=== PATIENT | female | born 1955 | race Caucasian/White ===

== ENCOUNTER 2017-10-17 05:35 | Inpatient (IN) | payer OTHER ==
[~2017-10-17] VITALS: Ht 162.6 cm; Wt 70.9 kg
[2017-10-17 05:42] VITALS: Ht 162.6 cm; Wt 70.9 kg
[2017-10-17] MEDS ORDERED: SOD CHLORIDE 0.9% 500 ML IV ONE (06:00)
[2017-10-17] MEDS ORDERED: DILTIAZEM 25 MG INJ IV ONE ×2 (06:00→08:30)
[2017-10-17] MEDS ORDERED: DILTIAZEM 30 MG TAB PO ONE (06:30)
[2017-10-17 06:46] LABS: BASOPHILS % 0.7 % (0.0-2.0); EOSINOPHILS # 0.1 10^3/ul (0.0-0.5); EOSINOPHILS % 1.3 % (0.0-7.0); HEMATOCRIT 33.4 % (37.0-47.0); HEMOGLOBIN 10.6 g/dl (12.0-16.0); LYMPHOCYTES # 1.4 10^3/ul (0.8-2.9); LYMPHOCYTES % 25.4 % (15.0-51.0); MEAN CORPUSCULAR HEMOGLOBIN 30.4 pg (29.0-33.0); MEAN CORPUSCULAR HGB CONC 31.7 g/dl (32.0-37.0); MEAN CORPUSCULAR VOLUME 95.7 fl (82.0-101.0); MEAN PLATELET VOLUME 9.8 fl (7.4-10.4); MONOCYTE # 0.5 10^3/ul (0.3-0.9); MONOCYTES % 9.1 % (0.0-11.0); NEUTROPHIL # 3.5 10^3/ul (1.6-7.5); NEUTROPHILS % 63.1 % (39.0-77.0); PLATELET COUNT 253 10^3/UL (140-415); RED BLOOD COUNT 3.49 10^6/ul (4.20-5.40); RED CELL DISTRIBUTION WIDTH 12.3 % (11.5-14.5); WHITE BLOOD COUNT 5.5 10^3/ul (4.8-10.8)
--- NOTE | 2017-10-17 07:03 | RADRPT ---
PROCEDURE: XR Chest. CLINICAL INDICATION: Chest Pain. TECHNIQUE: AP semi upright chest COMPARISON: None. FINDINGS: The patient has a poor inspiration. The heart is within normal limits in size. There is no evidence of pulmonary vascular congestion acute lung consolidation pleural effusions and pneumothorax. IMPRESSION: No evidence of acute cardiopulmonary disease. RPTAT:AAJJ Physician Allan Date Time Electronically viewed and signed by Lui lAvarado Physician on 10/17/2017 07:02 BM/
[2017-10-17] MEDS ORDERED: SOD CHLORIDE 0.9% 1,000 ML IV STA ×2 (07:06→08:16)
[2017-10-17 07:24] LABS: ALANINE AMINOTRANSFERASE 26 IU/L (13-69); ALBUMIN 3.5 g/dl (3.3-4.9); ALBUMIN/GLOBULIN RATIO 1.29; ALKALINE PHOSPHATASE 46 IU/L (42-121); ANION GAP 14 (8-16); ASPARTATE AMINO TRANSFERASE 18 IU/L (15-46); BLOOD UREA NITROGEN 18 mg/dl (7-20); CALCIUM 8.4 mg/dl (8.4-10.2); CARBON DIOXIDE 23 mmol/L (21-31); CHLORIDE 114 mmol/L (97-110); CREATININE 0.57 mg/dl (0.44-1.00); GLUCOSE 102 mg/dl (70-220); POTASSIUM 4.1 mmol/L (3.5-5.1); SODIUM 147 mmol/L (135-144); TOTAL PROTEIN 6.2 g/dl (6.1-8.1)
[2017-10-17 07:35] LABS: B-TYPE NATRIURETIC PEPTIDE 212 PG/ML (0-125)
[2017-10-17 07:37] LABS: TROPONIN-I < 0.012 ng/ml (0.00-0.12)
[2017-10-17] MEDS ORDERED: ONDANSETRON 4 MG INJ IV PRN (08:00)
[2017-10-17] MEDS ORDERED: ACETAMINOPHEN 325 MG TAB PO PRN ×2 (08:00→19:00)
--- NOTE | 2017-10-17 08:16 | ERD ---
ER Documentation Chief Complaint Chief Complaint episode of tachycardia at home 160s at 1am today w/ SOB HPI Patient is a 61-year-old female who presents with palpitations. They started this morning at 1 AM. She is not on any medications like Coumadin and has not heard of atrial fibrillation in the past. She has no history of A. fib per her daughter. She has had a burning type back pain since this morning as well. She has had no treatment as of yet. She does not currently have a primary doctor. Upon review of old medical records this is the patient's first visit to the emergency department. ROS All systems reviewed and are negative except as per history of present illness. Medications Home Meds No Active Prescriptions or Reported Meds Allergies Allergies: Coded Allergies: No Known Allergy (Unverified , 10/17/17) PMhx/Soc Medical and Surgical Hx: pt denies Medical Hx, pt denies Surgical Hx Hx Alcohol Use: No Hx Substance Use: No Hx Tobacco Use: No Smoking Status: Never smoker FmHx Family History: No diabetes Physical Exam Vitals Vital Signs Date Time Temp Pulse Resp B/P Pulse Ox O2 Delivery O2 Flow Rate FiO2 10/17/17 06:10 154 23 125/112 99 Room Air 10/17/17 05:42 97.6 72 20 101/67 100 Physical Exam Const: No acute distress Head: Atraumatic Eyes: Normal Conjunctiva ENT: Normal External Ears, Nose and Mouth. Neck: Full range of motion..~ No meningismus. Resp: Clear to auscultation bilaterally Cardio: Tachycardic rate without murmur Abd: Soft, non tender, non distended. Normal bowel sounds Skin: No petechiae or rashes Back: No midline or flank tenderness Ext: No cyanosis, or edema Neur: Awake and alert Psych: Normal Mood and Affect Result Diagram: 10/17/1731 10/17/1731 Results 24 hrs Laboratory Tests Test 10/17/17 06:31 White Blood Count 5.510^3/ul Red Blood Count 3.4910^6/ul Hemoglobin 10.6g/dl Hematocrit 33.4% Mean Corpuscular Volume 95.7fl Mean Corpuscular Hemoglobin 30.4pg Mean Corpuscular Hemoglobin Concent 31.7g/dl Red Cell Distribution Width 12.3% Platelet Count 38110^3/UL Mean Platelet Volume 9.8fl Neutrophils % 63.1% Lymphocytes % 25.4% Monocytes % 9.1% Eosinophils % 1.3% Basophils % 0.7% Nucleated Red Blood Cells % 0.0/100WBC Neutrophils # 3.510^3/ul Lymphocytes # 1.410^3/ul Monocytes # 0.510^3/ul Eosinophils # 0.110^3/ul Basophils # 0.010^3/ul Nucleated Red Blood Cells # 0.010^3/ul Sodium Level 147mmol/L Potassium Level 4.1mmol/L Chloride Level 114mmol/L Carbon Dioxide Level 23mmol/L Anion Gap 14 Blood Urea Nitrogen 18mg/dl Creatinine 0.57mg/dl Glucose Level 102mg/dl Calcium Level 8.4mg/dl Total Bilirubin 0.0mg/dl Direct Bilirubin 0.00mg/dl Indirect Bilirubin 0.0mg/dl Aspartate Amino Transf (AST/SGOT) 18IU/L Alanine Aminotransferase (ALT/SGPT) 26IU/L Alkaline Phosphatase 46IU/L Troponin I < 0.012ng/ml B-Type Natriuretic Peptide 212PG/ML Total Protein 6.2g/dl Albumin 3.5g/dl Globulin 2.70g/dl Albumin/Globulin Ratio 1.29 Current Medications Medications (Trade) Dose Ordered Sig/Bahman Route PRN Reason Start Time Stop Time Status Last Admin Dose Admin Sodium Chloride (NS) 500 ml @ 500 mls/hr Q1H ONCE IV 10/17/17 06:00 10/17/17 06:59 DC 10/17/17 06:07 Diltiazem HCl (Cardizem Iv) 10 mg ONCE ONCE IV 10/17/17 06:00 10/17/17 06:01 DC 10/17/17 06:07 Diltiazem HCl 30 mg 30 mg ONCE ONCE PO 10/17/17 06:30 10/17/17 06:31 DC Sodium Chloride (NS) 1,000 ml @ 1,000 mls/hr Q1H STAT IV 10/17/17 07:06 10/17/17 08:05 DC Ondansetron HCl (Zofran Inj) 4 mg ER BRIDGE PRN IV NAUSEA AND/OR VOMITING 10/17/17 08:00 10/18/17 07:59 Acetaminophen (Tylenol Tab) 650 mg ER BRIDGE PRN PO MILD PAIN/FEVER 10/17/17 08:00 10/18/17 07:59 Procedures/MDM EKG read by me: Rate/Rhythm: Atrial fibrillation with a rapid ventricular response Intervals: Normal Impression: A. fib with RVR Chest x-ray negative per radiology. Patient is a 61-year-old female who presents with new onset atrial fibrillation. She also has A. fib with RVR. The patient will be admitted to the care of Dr. Groves as the patient has [facility] insurance. The patient's laboratory studies are basically normal. She has mild anemia that does not require transfusion. The patient will be admitted to a telemetry bed. She was given diltiazem both IV and by mouth. She was given normal saline for fluid resuscitation as well. Critical Care: Time: 35 minutes excluding all billable procedures. Treatments/Evaluations: Close monitoring and treatment of unstable vital signs, cardiorespiratory, and neurologic status, while maintaining tight balance of fluid, respiratory, and cardiac interventions. Departure Diagnosis: Primary Impression: Atrial fibrillation with rapid ventricular response Additional Impression: Tachycardia Condition: BENIGNO Zuñiga MD Oct 17, 2017 08:16
[2017-10-17 09:15] LABS: INR 0.94; PROTIME 12.6 Sec (12.2-14.2)
[2017-10-17 09:16] LABS: PARTIAL THROMBOPLASTIN TIME 25.7 Sec (25.0-35.0)
[2017-10-17] MEDS ORDERED: DILTIAZEM-D5W 125MG/125ML DRIP 125 ML IV STA (09:49)
[2017-10-17] MEDS ORDERED: AMIODARONE 900 MG in DEXTROSE 5% 482 ML IV SCH (12:00)
--- NOTE | 2017-10-17 12:36 | CONS ---
DATE OF ADMISSION: 10/17/2017 DATE OF CONSULTATION: 10/17/2017 CARDIOLOGY CONSULTATION REFERRING PHYSICIAN: Dr. Fatima. REASON FOR EVALUATION: Atrial fibrillation with rapid ventricular response. HISTORY OF PRESENT ILLNESS: Ms. Reynolds is a 61-year-old woman from [facility] who has a history of heart disease diagnosed in [facility], although she is not sure what it is, who comes to the hospital [facility] for evaluation of ____, palpitations. The patient says she has never had episodes like this befo re though she had palpitations prior. She is not anticoagulated. The patient has atrial fibrillati on with rapid ventricular response. She is on diltiazem drip which is being treated. Since onset o f symptoms less than 24 hours, I think it might be reasonable to try to convert the patient back to sinus rhythm. We will initiate her on anticoagulation therapy and initiate amiodarone drip now and hope for conversion. ALLERGIES: NO KNOWN DRUG ALLERGIES. SOCIAL HISTORY: The patient does not smoke, does not drink. FAMILY HISTORY: Negative for sudden cardiac , premature coronary artery disease. PAST MEDICAL HISTORY: History of cardiac congestion, poorly described, diagnosed in [facility]. Famil y history of diabetes. MEDICATION: 1. Diltiazem drip. 2. Ondansetron. 3. ____. REVIEW OF SYSTEMS: CONSTITUTIONAL: No fevers, no chills. HEENT: No changes in vision or hearing. CARDIAC: No chest pain reported now, tachycardia. RESPIRATORY: Shortness of breath, acute on chronic with tachycardia. GASTROINTESTINAL: No nausea, vomiting, diarrhea, constipation. GENITOURINARY: No dysuria, hematuria. NEUROLOGIC: No focal neurologic deficits. HEMATOLOGIC: No easy bruising. PSYCHIATRIC: No history of psychiatric disease. PHYSICAL EXAMINATION: VITAL SIGNS: Temperature is 97.8, heart rate in 140s now, blood pressure is ____. GENERAL: She is a thin woman in no acute distress, alert and oriented x3. HEAD: Normocephalic, atraumatic. Eyes anicteric. NECK: Supple. JVD 6 to 7 cm. There is no lymphadenopathy or thyromegaly. HEART: Regular with soft holosystolic murmur at the apex. PMI is nondisplaced. I do not hear an S 3. LUNGS: Coarse at bases. ABDOMEN: Distended, bowel sounds are present. There is no hepatosplenomegaly. EXTREMITIES: Show no clubbing, cyanosis, or edema. LABORATORY DATA: White blood cell count 5.5, hemoglobin 10.6, platelets 253. Sodium 147, potassium 4.1, BUN is 18, creatinine 0.8. Troponin is negative at 0.012. ASSESSMENT AND PLAN: 1. Atrial fibrillation per the EKG, fairly fast. Onset of symptoms less than 24 hours. We will tr y to convert back to sinus rhythm. We will initiate the patient on Lovenox for stroke prophylaxis a nd initiate the patient on amiodarone now. 2. Tachycardia as noted above with atrial fibrillation. Continue to follow. ____. CHADs score is known, was less than 1. We will initiate Lovenox now for cardioversion. We will obtain a 2D echo. 3. Low blood pressure in the setting of atrial fibrillation. I hope patient can tolerate amiodaron e drip. Dictated By: BRIA GASPAR MD ML/NTS Conf#: [id number] DID#: [id number] CC: Dr. Fatima;*End*
[2017-10-17 13:07] LABS: CREATINE KINASE 61 IU/L (23-200)
[2017-10-17 13:18] LABS: CK-MB 0.88 ng/ml (0.0-2.4)
[2017-10-17 13:27] LABS: TROPONIN-I < 0.012 ng/ml (0.00-0.12)
--- NOTE | 2017-10-17 18:38 | HP ---
Date/Time of Note Date/Time of Note DATE: 10/17/17 TIME: 18:38 Assessment/Plan VTE Prophylaxis VTE Prophylaxis Intervention: LMWH Lines/Catheters IV Catheter Type (from [facility]): [place] Assessment/Plan Chief Complaint/Hosp Course 1. Incontrollable Atrial fibrillation 2. Hypotension Problems: Assessment/Plan -continue amiodarone drip -Dr. Condon already seen pt -ICU admit -series of troponin. -diagnostic -start anticoagulants HPI/ROS Admit Date/Time Admit Date/Time Hx of Present Illness Patient is a 61-year-old female who presents with palpitations in ER . Patient reported that she was waking up at 1 AM from palpitations. Pt is is not on any medications like Coumadin and has not heard of atrial fibrillation in the past. She has no history of A. fib per her daughter. She has had a burning type back pain since this morning as well. She does not currently have a primary doctor. Upon review of old medical records this is the patient's first visit to the emergency department. Pt denied any medical problems and only taking daily baby aspirin. ROS Constitutional: chills, diaphoresis, disoriented, fatigue, febrile, improved, nausea, no complaints (except palpitations), other, poor po, weight change Respiratory: cough, no complaints, pain, pleuritic pain, shortness of breath, No other, No sputum, No wheezing Cardiovascular: palpitations, No no complaints, No other, No paroxysmal nocturnal dyspnea Musculoskeletal: bone/joint pain, restricted range of motion, No back pain, No neck pain, No no complaints, No other, No swelling Neurologic: confusion, focal-weakness, headache, syncope, No dizziness, No no complaints, No other, No seizure Lymphatic: no complaints Psychological: no complaints PMH/Family/Social Past Medical History Fracture right foot after fall Medical History: no pertinent history, diabetes (denied), hypertension (denied) , renal disease (denied), other Past Surgical History Past Surgical Hx: angioplasty (ovariamn mass removal. Appendectomy 1987, Ileus 1989, Hysterectomy 2011 for repair abdominal hernia.), other (extensive:) Family History Significant Family History: no pertinent family hx Social History Alcohol Use: none Smoking Status: Never smoker Drug Use: none Exam/Review of Systems Vital Signs Vitals Vital Signs Date Time Temp Pulse Resp B/P Pulse Ox O2 Delivery O2 Flow Rate FiO2 10/17/17 17:17 98.7 130 21 98/70 99 Room Air Exam Constitutional: alert, oriented Eyes: nl conjunctiva Respiratory: clear to auscultation Cardiovascular: irregular rhythm, murmurs/extra sounds Gastrointestinal: soft Genitourinary - Female: nl external genitalia Musculoskeletal: nl extremities to inspection Extremities: normal pulses Neurological: [employer] II-XII intact, nl mental status Labs Result Diagram: 10/17/1763010/17/17630 Medications Medications Current Medications Amiodarone HCl/ Dextrose (Cordarone Iv/ D5W) 500 ml @ 0 mls/hr Q0M IV Last administered on 10/17/17t 14:27; Admin Dose 33.3 MLS/HR; Start 10/17/17 at 12: 00 Enoxaparin Sodium (Lovenox) 70 mg Q12 SC ; Start 10/17/17 at 21:00 GERALD CHAPARRO Oct 17, 2017 18:38
[2017-10-17 18:52] LABS: CK-MB 0.82 ng/ml (0.0-2.4); TROPONIN-I 0.019 ng/ml (0.00-0.12)
[2017-10-17] MEDS ORDERED: NACL 0.9% 3 ML SYG IV SCH (19:00)
[2017-10-17] MEDS ORDERED: ZOLPIDEM 5 MG TAB PO PRN (19:00)
[2017-10-17] MEDS ORDERED: DOCUSATE SODIUM 100 MG CAP PO PRN (19:00)
[2017-10-17] MEDS ORDERED: DEXTROSE 5%-0.45% NACL 1,000 ML IV SCH (20:30)
[2017-10-17] MEDS: ENOXAPARIN 80 MG/0.8 ML SYG SC SCH (23:12)
[2017-10-18] VITALS (46 sets, daily range): BP systolic 99–122; BP diastolic 55–91; PULSE 58–140; RESP 11–24; TEMP 98.6
[2017-10-18] MEDS: PANTOPRAZOLE 40 MG INJ IV SCH (05:22)
[2017-10-18 05:35] LABS: BASOPHILS % 0.6 % (0.0-2.0); EOSINOPHILS # 0.1 10^3/ul (0.0-0.5); EOSINOPHILS % 1.2 % (0.0-7.0); HEMATOCRIT 31.1 % (37.0-47.0); LYMPHOCYTES % 31.1 % (15.0-51.0); MEAN CORPUSCULAR HEMOGLOBIN 30.7 pg (29.0-33.0); MEAN CORPUSCULAR HGB CONC 32.2 g/dl (32.0-37.0); MEAN CORPUSCULAR VOLUME 95.4 fl (82.0-101.0); MEAN PLATELET VOLUME 10.3 fl (7.4-10.4); MONOCYTE # 0.4 10^3/ul (0.3-0.9); MONOCYTES % 6.5 % (0.0-11.0); NEUTROPHILS % 60.1 % (39.0-77.0); PLATELET COUNT 260 10^3/UL (140-415); RED BLOOD COUNT 3.26 10^6/ul (4.20-5.40); RED CELL DISTRIBUTION WIDTH 12.5 % (11.5-14.5); WHITE BLOOD COUNT 6.6 10^3/ul (4.8-10.8)
[2017-10-18 06:00] LABS: ALBUMIN 3.1 g/dl (3.3-4.9); ALBUMIN/GLOBULIN RATIO 1.1; BILIRUBIN,INDIRECT 0.2 mg/dl (0-1.1); BILIRUBIN,TOTAL 0.2 mg/dl (0.2-1.3); CALCIUM 8.7 mg/dl (8.4-10.2); CREATININE 0.65 mg/dl (0.44-1.00); POTASSIUM 4.1 mmol/L (3.5-5.1); TOTAL PROTEIN 5.9 g/dl (6.1-8.1)
[2017-10-18 06:15] LABS: T3 UPTAKE 32.2 % (23.5-40.5)
[2017-10-18] MEDS: ENOXAPARIN 80 MG/0.8 ML SYG SC SCH ×2 (08:54→20:17)
--- NOTE | 2017-10-18 13:00 | CONS ---
Date/Time of Note Date/Time of Note DATE: 10/18/17 TIME: 12:54 Assessment/Plan Assessment/Plan Chief Complaint/Hosp Course IMP: 1.AF with RVR-now converted to SR on amio IV. NL TSH/negative trop x 3 2.Hypotension-improved currently 3.hypernatremia Recc: -Ok to tele -serial ecg's -IV to PO amio in attempt mto maintain SR -start PO digoxin and low dose BB as tolerated only -Will f/u echo Problems: Consultation Date/Type/Reason Admit Date/Time Oct 17, 2017 at 07:33 Initial Consult Date 10/17/2017 Type of Consultation: cardiology Reason for Consultation AF Referring Provider: AINSLEY RINCON MD Exam/Review of Systems Vital Signs Vitals Vital Signs Date Time Temp Pulse Resp B/P Pulse Ox O2 Delivery O2 Flow Rate FiO2 10/18/17 09:30 65 16 108/74 98 Nasal Cannula 10/18/17 08:00 98.1 10/18/17 07:00 2.0 Intake and Output 10/17/17 10/17/17 10/18/17 15:00 23:00 07:00 Intake Total 466.9 ml Output Total 0 ml Balance 466.9 ml Exam Review of Systems: CONSTITUTIONAL: No fevers, chills. PULMONARY: No sob CARDIOVASCULAR: No chest pain/palpitations GASTROINTESTINAL: No nausea/vomiting. GENITOURINARY: No hematuria/dysuria. MUSCULOSKELETAL: No myagias/arthalgias. PSYCHIATRIC: The patient denies depression. NEUROLOGIC: No weakness Constitutional: alert Psych: no complaints Head: normocephalic ENMT: mucosa pink and moist Neck: jvd (8 cm water), supple Respiratory: clear to auscultation Cardiovascular: regular rate and rhythm Gastrointestinal: non-tender, soft Musculoskeletal: muscle tone (normal) Extremities: edema (none) Neurological: other (No focal deficits) Results Result Diagram: 10/18/1743910/18/17439 Results 24 hrs Laboratory Tests Test 10/17/17 18:13 10/17/17 21:12 10/18/17 04:40 Creatine Kinase 49 Creatine Kinase Index 1.7 Creatinine Kinase MB (Mass) 0.82 Troponin I 0.019 Activated Partial Thromboplast Time 28.8 White Blood Count 6.6 Red Blood Count 3.26 L Hemoglobin 10.0 L Hematocrit 31.1 L Mean Corpuscular Volume 95.4 Mean Corpuscular Hemoglobin 30.7 Mean Corpuscular Hemoglobin Concent 32.2 Red Cell Distribution Width 12.5 Platelet Count 260 Mean Platelet Volume 10.3 Neutrophils % 60.1 Lymphocytes % 31.1 Monocytes % 6.5 Eosinophils % 1.2 Basophils % 0.6 Nucleated Red Blood Cells % 0.0 Neutrophils # 4.0 Lymphocytes # 2.0 Monocytes # 0.4 Eosinophils # 0.1 Basophils # 0.0 Nucleated Red Blood Cells # 0.0 Sodium Level 146 H Potassium Level 4.1 Chloride Level 112 H Carbon Dioxide Level 29 Anion Gap 9 # Blood Urea Nitrogen 15 Creatinine 0.65 Glucose Level 104 Calcium Level 8.7 Total Bilirubin 0.2 Direct Bilirubin 0.00 Indirect Bilirubin 0.2 Aspartate Amino Transf (AST/SGOT) 16 Alanine Aminotransferase (ALT/SGPT) 37 Alkaline Phosphatase 48 Total Protein 5.9 L Albumin 3.1 L Globulin 2.80 Albumin/Globulin Ratio 1.10 Free Thyroxine Index 2.22 Thyroxine (T4) 6.9 Triiodothyronine (T3) Uptake 32.2 Medications Medications Current Medications Amiodarone HCl/ Dextrose (Cordarone Iv/ D5W) 500 ml @ 0 mls/hr Q0M IV Last administered on 10/17/17 14:27; Admin Dose 33.3 MLS/HR; Start 10/17/17 at 12: 00 Enoxaparin Sodium 70 mg 70 mg Q12 SC Last administered on 10/18/17 08:54; Admin Dose 70 MG; Start 10/17/17 at 21:00 Dextrose/Sodium Chloride (D5-1/2ns) 1,000 ml @ 50 mls/hr Q20H IV Last administered on 10/18/17 00:30; Admin Dose 50 MLS/HR; Start 10/17/17 at 20:30 Acetaminophen (Tylenol Tab) 650 mg Q6H PRN PO PAIN LEVEL 1-3 OR FEVER; Start 10/17/17 at 19:00 Docusate Sodium (Colace) 100 mg Q12H PRN PO CONSTIPATION; Start 10/17/17 at 19 :00 Zolpidem Tartrate (Ambien) 5 mg QHS PRN PO SLEEP; Start 10/17/17 at 19:00 Pantoprazole (Protonix Iv) 40 mg DAILY@06 IV Last administered on 10/18/17t 05 :22; Admin Dose 40 MG; Start 10/18/17 at 06:00 LUCIEN WHITE Oct 18, 2017 12:59
[2017-10-18] MEDS: AMIODARONE 200 MG TAB PO SCH ×2 (13:39→20:11)
[2017-10-18] MEDS: DIGOXIN 0.125 MG TAB PO SCH (13:40)
--- NOTE | 2017-10-18 13:51 | PN ---
JOI CHAPARROA 10/18/17 1351: Date/Time of Note Date/Time of Note DATE: 10/18/17 TIME: 13:50 Assessment/Plan VTE Prophylaxis VTE Prophylaxis Intervention: LMWH Lines/Catheters IV Catheter Type (from Nrs): Mid Line Central line still needed: Yes Urinary Cath still in place: No Assessment/Plan Chief Complaint/Hosp Course 1. Incontrollable Atrial fibrillation, converted to SR 2. Hypernatremia Problems: Assessment/Plan 1. Transfer to tele 2. continue a/coagulants Subjective 24 Hr Interval Summary Constitutional: improved, no complaints Cardiovascular: no complaints Exam/Review of Systems Vital Signs Vitals Vital Signs Date Time Temp Pulse Resp B/P Pulse Ox O2 Delivery O2 Flow Rate FiO2 10/18/17 13:00 69 16 115/72 96 10/18/17 12:00 98.4 10/18/17 09:30 Nasal Cannula 10/18/17 07:00 2.0 Intake and Output 10/17/17 10/17/17 10/18/17 15:00 23:00 07:00 Intake Total 466.9 ml Output Total 0 ml Balance 466.9 ml Exam Constitutional: alert, oriented Respiratory: clear to auscultation Cardiovascular: regular rate and rhythm Results Result Diagram: 10/18/17 0440 10/18/17 0440 Results 24 hrs Laboratory Tests Test 10/17/17 18:13 10/17/17 21:12 10/18/17 04:40 Creatine Kinase 49 Creatine Kinase Index 1.7 Creatinine Kinase MB (Mass) 0.82 Troponin I 0.019 Activated Partial Thromboplast Time 28.8 White Blood Count 6.6 Red Blood Count 3.26 L Hemoglobin 10.0 L Hematocrit 31.1 L Mean Corpuscular Volume 95.4 Mean Corpuscular Hemoglobin 30.7 Mean Corpuscular Hemoglobin Concent 32.2 Red Cell Distribution Width 12.5 Platelet Count 260 Mean Platelet Volume 10.3 Neutrophils % 60.1 Lymphocytes % 31.1 Monocytes % 6.5 Eosinophils % 1.2 Basophils % 0.6 Nucleated Red Blood Cells % 0.0 Neutrophils # 4.0 Lymphocytes # 2.0 Monocytes # 0.4 Eosinophils # 0.1 Basophils # 0.0 Nucleated Red Blood Cells # 0.0 Sodium Level 146 H Potassium Level 4.1 Chloride Level 112 H Carbon Dioxide Level 29 Anion Gap 9 # Blood Urea Nitrogen 15 Creatinine 0.65 Glucose Level 104 Calcium Level 8.7 Total Bilirubin 0.2 Direct Bilirubin 0.00 Indirect Bilirubin 0.2 Aspartate Amino Transf (AST/SGOT) 16 Alanine Aminotransferase (ALT/SGPT) 37 Alkaline Phosphatase 48 Total Protein 5.9 L Albumin 3.1 L Globulin 2.80 Albumin/Globulin Ratio 1.10 Free Thyroxine Index 2.22 Thyroxine (T4) 6.9 Triiodothyronine (T3) Uptake 32.2 Medications Medications Current Medications Amiodarone HCl/ Dextrose (Cordarone Iv/ D5W) 500 ml @ 0 mls/hr Q0M IV Last administered on 10/17/17 14:27; Admin Dose 33.3 MLS/HR; Start 10/17/17 at 12: 00 Enoxaparin Sodium (Lovenox) 70 mg Q12 SC Last administered on 10/18/17 08:54 ; Admin Dose 70 MG; Start 10/17/17 at 21:00 Acetaminophen (Tylenol Tab) 650 mg Q6H PRN PO PAIN LEVEL 1-3 OR FEVER; Start 10/17/17 at 19:00 Docusate Sodium (Colace) 100 mg Q12H PRN PO CONSTIPATION; Start 10/17/17 at 19 :00 Zolpidem Tartrate (Ambien) 5 mg QHS PRN PO SLEEP; Start 10/17/17 at 19:00 Pantoprazole (Protonix Iv) 40 mg DAILY@06 IV Last administered on 10/18/17 05 :22; Admin Dose 40 MG; Start 10/18/17 at 06:00 Amiodarone HCl (Cordarone) 200 mg TID PO Last administered on 10/18/17 13:39 ; Admin Dose 200 MG; Start 10/18/17 at 13:00 Metoprolol Tartrate (Lopressor) 12.5 mg BID PO ; Start 10/18/17 at 21:00 Digoxin (Digoxin) 0.125 mg DAILY@13 PO Last administered on 10/18/17 13:40; Admin Dose 0.125 MG; Start 10/18/17 at 13:00 AINSLEY RINCON MD 10/18/17 1708: Assessment/Plan Assessment/Plan Assessment/Plan c/w Amiodarone and dig po tele Exam/Review of Systems Results Result Diagram: 10/18/17 8430 10/18/17 0440 GERALD CHAPARRO Oct 18, 2017 13:51 AINSLEY RINCON MD Oct 18, 2017 17:08
--- NOTE | 2017-10-18 18:14 | RADRPT ---
Echocardiogram Report Patient Name: RAMAN CAMEJO Gender: Female Date: 1955 Study Date: 17-Oct-2017 Summer Counselor: Arthur Padilla [facility] Location: [facility] Ref. Physician: BRIA GASPAR Quality: Good Procedures: Transthoracic echocardiogram with complete 2D, M-Mode, and doppler examination. Indications: Atrial Fibrillation. 2D/M Mode Doppler Measurement Value Normal Ranges Measurement Value Normal Ranges LVIDd 2D 4.0 3.5 - 5.6 cm AV Peak Yrn 1.2 m/sec LVIDs 2D 2.1 2.1 - 4.1 cm AV Peak PG 5.9 mmHg LVPWd 2D 1.1 0.6 - 1.1 cm LVOT Peak Yrn 1.1 m/sec IVSd 2D 0.9 0.6 - 1.1 cm LVOT Peak PG 4.9 mmHg AoR Diam 2D 3.0 2.0 - 3.7 cm EDV 2D 69.4 cm3 ESV 2D 8.8 cm3 LA Dimen 2D 3.0 2.3 - 4.0 cm Findings Left Ventricle: Lower limits of normal systolic function. Normal left ventricular cavity size. Mild concentric left ventricular hypertrophy. Ejection fraction is visually estimated at 5055 %. Tissue Doppler/Mitral Doppler indices are indeterminate in this study due to the presence of atrial fibrillation. Right Ventricle: Normal right ventricular size. Normal right ventricular systolic function. Left Atrium: The left atrium is normal in size. Right Atrium: The right atrium is normal in size. Mitral Valve: Mitral valve leaflets appear mildly thickened. Mild mitral annular calcification. Mild mitral valve regurgitation. Aortic Valve: Normal appearance of the aortic valve. No significant aortic stenosis or insufficiency. Tricuspid Valve: Normal appearance of the tricuspid valve. Unable to obtain RVSP due to minimal presence of tricuspid regurgitation. Pulmonic Valve: Normal pulmonic valve appearance. Pericardium: Normal pericardium with no significant pericardial effusion. Aorta: Normal aortic root. IVC: Dilated IVC with respiratory collapse consistent with elevated right atrial pressure. Conclusions 1.Lower limits of normal systolic function. Normal left ventricular cavity size. Mild concentric left ventricular hypertrophy. Ejection fraction is visually estimated at 50-55 %. Tissue Doppler/Mitral Doppler indices are indeterminate in this study due to the presence of atrial fibrillation. 2.Mitral valve leaflets appear mildly thickened. Mild mitral annular calcification. Mild mitral valve regurgitation. 3.Normal appearance of the tricuspid valve. Unable to obtain RVSP due to minimal presence of tricuspid regurgitation. Electronically Signed By: Chester Topete 18-Oct-2017 18:14:08 -0800 Patient Name: RAMAN CAMEJO Study Date: 17-Oct-2017 [id number]
[2017-10-18] MEDS: METOPROLOL 25 MG TAB PO SCH (20:10)
[2017-10-19] VITALS (15 sets, daily range): BP systolic 94–124; BP diastolic 57–81; PULSE 58–70; RESP 16–20
[2017-10-19 05:03] LABS: CALCIUM 8.5 mg/dl (8.4-10.2); CREATININE 0.72 mg/dl (0.44-1.00)
[2017-10-19] MEDS: PANTOPRAZOLE 40 MG INJ IV SCH (05:51)
[2017-10-19] MEDS: METOPROLOL 25 MG TAB PO SCH (08:18)
[2017-10-19] MEDS: AMIODARONE 200 MG TAB PO SCH ×2 (08:18→12:31)
[2017-10-19] MEDS: ENOXAPARIN 80 MG/0.8 ML SYG SC SCH (08:28)
--- NOTE | 2017-10-19 11:25 | CONS ---
Date/Time of Note Date/Time of Note DATE: 10/19/17 TIME: : Assessment/Plan Assessment/Plan Additional Assessment/Plan 1. Atrial fibrillation per the EKG, fairly fast - converted to sinus. On ASA - Ok home with BB - outpt f/up with cardiology. 2. Tachycardia as noted above with atrial fibrillation - in sinus now. 3. Low blood pressure in the setting of atrial fibrillation. I hope patient can tolerate amiodarone drip. OFF NOW. 4. Abn ECG - no CP, r/o OK - ECHO to follow. Consultation Date/Type/Reason Admit Date/Time Oct 17, 2017 at 07:33 Initial Consult Date Type of Consultation: cardiology Referring Provider: AINSLEY RINCON MD 24 HR Interval Summary Free Text/Dictation NO acute events - in sinus - dispo to home. ROS: No fever, no chills, no nausea, no vomiting, no diarrhea/constipation No recent weight changes No chest pain, no PND, no orthopnea No dizziness, blurred vision No thirst, no heat or cold intolerance Exam/Review of Systems Vital Signs Vitals Vital Signs Date Time Temp Pulse Resp B/P Pulse Ox O2 Delivery O2 Flow Rate FiO2 10/19/17 11:00 69 17 111/79 98 Room Air 10/19/17 07:00 98.3 10/18/17 07:00 2.0 Intake and Output 10/18/17 10/18/17 10/19/17 15:00 23:00 07:00 Intake Total 700.2 ml 250 ml 150 ml Output Total 550 ml 200 ml 150 ml Balance 150.2 ml 50 ml 0 ml Exam General: WN/WD/NAD, AOx 3 HEENT: Unicetric/atraumatic/EOMI (follows commands) NECK: JVD elevated, no thyromegaly Lymph: no lymphadenopathy HEART: regular with no S3, II/ systolic murmur at apex LUNGS: Coarse sounds ABD: soft, NT, ND, +BS : Intact Neuro: non focal SKIN: chronic changes EXT: trace edema Results Result Diagram: 10/18/170 10/19/17 0405 Results 24 hrs Laboratory Tests Test 10/19/17 04:05 Sodium Level 143 Potassium Level 4.0 Chloride Level 107 Carbon Dioxide Level 28 Anion Gap 12 Blood Urea Nitrogen 16 Creatinine 0.72 Glucose Level 90 Calcium Level 8.5 Medications Medications Current Medications Enoxaparin Sodium (Lovenox) 70 mg Q12 SC Last administered on 10/19/17 08:28 ; Admin Dose 70 MG; Start 10/17/17 at 21:00 Acetaminophen (Tylenol Tab) 650 mg Q6H PRN PO PAIN LEVEL 1-3 OR FEVER; Start 10/17/17 at 19:00 Docusate Sodium (Colace) 100 mg Q12H PRN PO CONSTIPATION; Start 10/17/17 at 19 :00 Zolpidem Tartrate (Ambien) 5 mg QHS PRN PO SLEEP; Start 10/17/17 at 19:00 Pantoprazole (Protonix Iv) 40 mg DAILY@06 IV Last administered on 10/19/17 05 :51; Admin Dose 40 MG; Start 10/18/17 at 06:00 Amiodarone HCl (Cordarone) 200 mg TID PO Last administered on 10/19/17 08:18 ; Admin Dose 200 MG; Start 10/18/17 at 13:00 Metoprolol Tartrate (Lopressor) 12.5 mg BID PO Last administered on 10/19/17 08:18; Admin Dose 12.5 MG; Start 10/18/17 at 21:00 Digoxin (Digoxin) 0.125 mg DAILY@13 PO Last administered on 10/18/17 13:40; Admin Dose 0.125 MG; Start 10/18/17 at 13:00 BRIA GASPAR MD Oct 19, 2017 11:25
--- NOTE | 2017-10-19 12:25 | DS ---
Date/Time of Note Date/Time of Note DATE: 10/19/17 TIME: 12:24 Discharge Summary Admission/Discharge Info Admit Date/Time Oct 17, 2017 at 07:33 Discharge Date/Time Discharge Diagnosis New onset Atrial fibrillation Patient Condition: Stable Consults dr Condon, cardiology Procedures none Hospital Course Ms. Reynolds is a 61-year-old woman from [facility] who has a history of heart disease diagnosed in [facility], although she is not sure what it is, who comes to the hospital now for evaluation of palpitations. The patient says she has never had episodes like this before though she had palpitations prior. She is not anticoagulated. The patient has atrial fibrillation with rapid ventricular response. She was on diltiazem drip which is being treated. Since onset of symptoms less than 24 hours, . Patient reported that she was waking up at 1 AM from palpitations. Pt is is not on any medications like Coumadin and has not heard of atrial fibrillation in the past. She has no history of A. fib per her daughter. She has had a burning type back pain since this morning as well. She does not currently have a primary doctor. Upon review of old medical records this is the patient's first visit to the emergency department. Pt denied any medical problems and only taking daily baby aspirin. 1. Incontrollable Atrial fibrillation, converted to SR 2. Hypernatremia, resolved Home Meds Active Scripts Aspirin* (Aspirin*) 325 Mg Tablet, 325 MG PO DAILY for 30 Days, TAB Prov:GERALD CHAPARRO 10/19/17 Metoprolol Tartrate* (Lopressor*) 25 Mg Tab, 12.5 MG PO BID for 30 Days, TAB Prov:JOI CHAPARROA 10/19/17 Amiodarone Hcl* (Amiodarone Hcl*) 200 Mg Tablet, 200 MG PO TID for 30 Days, TAB Prov:GERALD CHAPARRO 10/19/17 Primary Care Provider Jesús Butterfield MD Time spent on discharge: < 30 minutes Pending Labs Laboratory Tests Test 10/19/17 04:05 Sodium Level 143mmol/L (135-144) Potassium Level 4.0mmol/L (3.5-5.1) Chloride Level 107mmol/L (97-110) Carbon Dioxide Level 28mmol/L (21-31) Anion Gap 12 (8-16) Blood Urea Nitrogen 16mg/dl (7-20) Creatinine 0.72mg/dl (0.44-1.00) Glucose Level 90mg/dl (70-220) Calcium Level 8.5mg/dl (8.4-10.2) GERALD CHAPARRO Oct 19, 2017 12:25
--- NOTE | 2017-10-19 12:30 | PDOCDIS ---
Discharge Instructions DIAGNOSIS Discharge Diagnosis Uncontrolled Atrial fibrillation CONDITION Patient Condition: Stable HOME CARE INSTRUCTIONS: Special Diet: low fat, low cholesterol diet ACTIVITY: Activity Restrictions: Slowly Increase Activity FOLLOW UP/APPOINTMENTS Follow-up Plan PCP 1 week', cardiology 6 month GERALD CHAPARRO Oct 19, 2017 12:30
[2017-10-19] MEDS ORDERED: ASPI325T4 PO (12:32)
[2017-10-19] MEDS ORDERED: AMIO200T2 PO (12:32)
[2017-10-19] MEDS ORDERED: METO-448 PO (12:32)
[2017-10-19] MEDS: DIGOXIN 0.125 MG TAB PO SCH (12:32)
[2017-10-20] MEDS ORDERED: PANTOPRAZOLE (EC) 40 MG TAB PO SCH (06:00)
== END 2017-10-19 14:15 | disposition home or self-care (01) | DRG 309 ==
LOC: E/R 05:35 → ICU 07:33
PROVIDERS: ADMIT Internal Medicine; ATTEND Internal Medicine
DX: I48.91 Unspecified atrial fibrillation (principal); E87.0 Hyperosmolality and hypernatremia; I95.9 Hypotension, unspecified; Z79.01 Long term (current) use of anticoagulants; Z79.82 Long term (current) use of aspirin; Z90.710 Acquired absence of both cervix and uterus
CPT/HCPCS: 71010; 80048; 80053; 82550; 82553; 83880; 84436; 84439; 84443; 84479; 84484; 85025; 85610; 85730; 93005; 93306; 96372; 96374; 96375; 96376; C9113; J0282; J7030; J7040; J7042; J7060